=== PATIENT | female | born 1970 | race Caucasian/White ===

== ENCOUNTER 2016-10-28 00:07 | Emergency (ER) | payer SELFPAY ==
[~2016-10-28] VITALS: Ht 165.1 cm; Wt 89.0 kg
[2016-10-28 00:13] VITALS: BP 131/79; PULSE 79; RESP 18; TEMP 98; O2SAT 98
[2016-10-28] MEDS ORDERED: BLAC540C PO (00:49)
[2016-10-28] MEDS ORDERED: BACT800T5 PO (01:32)
[2016-10-28] MEDS ORDERED: DOXY100C PO (01:32)
--- NOTE | 2016-10-28 01:34 | PD ---
HPI Chief Complaint: Skin Problem Time Seen by Provider: 01:26 Travel History International Travel<30 days: No Contact w/Intl Traveler<30days: No Traveled to known affect area: No History of Present Illness HPI The patient is a 46-year-old female that complains of painful lumps in her groin for approximately 3 days. She states she does not shave the area but shaved it after the lumps appeared so that she could see what was happening. At work she states he sweats a lot and this would not wear underwear. She denies any history of diabetes. PFSH Past Medical History Shingles: Yes (AGE 20) Tetanus Vaccination: > 5 Years Influenza Vaccination: No ?: Not LMP: "NO PERIOD IN 8 OR 9 MONTHS" : 3 Para: 2 : 1 Tubal Ligation: Yes Social History Alcohol Use: No Tobacco Use: Yes (/ PPD) Substance Use: Yes (MARIJUANA "FROM TIME TO TIME") Allergies-Medications (Allergen,Severity, Reaction): Coded Allergies: No Known Allergies (Unverified , 10/28/16) Reported Meds & Prescriptions Reported Meds & Active Scripts Active Reported Black Cohosh (Black Cohosh Extract) 40 Mg Cap 200 Mg PO DAILY Review of Systems Except as stated in HPI: all other systems reviewed are Neg Physical Exam Narrative GENERAL: Well-nourished, well-developed patient in slight apparent distress with her skin rash on her left groin. Her vital signs are normal. SKIN: Focused skin assessment warm/dry. There are several areas that appear to be folliculitis on the groin the P1 infected area is about 3 x 2 cm, nonfluctuant and appears to be associated with an infected hair follicle. HEAD: Normocephalic. EYES: No scleral icterus. No injection or drainage. NECK: Supple, trachea midline. No JVD or lymphadenopathy. CARDIOVASCULAR: Regular rate and rhythm without murmurs, gallops, or rubs. RESPIRATORY: Breath sounds equal bilaterally. No accessory muscle use. GASTROINTESTINAL: Abdomen soft, non-tender, nondistended. MUSCULOSKELETAL: No cyanosis, or edema. BACK: Nontender without obvious deformity. No CVA tenderness. Data Data Last Documented VS Vital Signs Date Time Temp Pulse Resp B/P Pulse Ox O2 Delivery O2 Flow Rate FiO2 10/28/16 00:13 98.0 79 18 131/79 98 [facility] Medical Decision Making Medical Screen Exam Complete: Yes Emergency Medical Condition: Yes Medical Record Reviewed: Yes Differential Diagnosis Folliculitis, cellulitis, pyoderma gangrenosumunlikely, abscess, necrotizing fasciitishighly unlikely Narrative Course The patient does not appear to be showing any abscess formation at this time. She has a cellulitis which is probably associated with a hair follicle. Plan: The patient will be given doxycycline and Septra DS. She should use warm compresses. She should follow-up with a data conversion developer. Diagnosis Primary Impression: Cellulitis of groin, left Additional Impression: Folliculitis Additional Instructions: As we discussed, this may convert into a walled off abscess which can drain. Return to the emergency department this is happened. This may occur in the next 3-4 days. Both antibiotics are taken one tablet twice daily for 10 days. Follow-up with a data conversion developer. Med/Other Pt SpecificInfo: Prescription(s) given Scripts Doxycycline Hyclate 100 Mg [id number] Mg PO BID #20 CAP Ref 0 Prov:Mark Moya MD 10/28/16 Sulfamethoxazole-Trimethoprim (Bactrim DS)800-160 Mg Tab1 Tab PO BID #20 TAB Ref 0 Prov:Mark Moya MD 10/28/16 Disposition: 01 DISCHARGE HOME Condition: Stable Mark Moya MD Oct 28, 2016 01:34
[2016-10-28] MEDS ORDERED: SULFAMETHOXAZOLE-TRIMETHOPRIM DS 800-160 MG TAB PO ONE (01:45)
[2016-10-28] MEDS ORDERED: DOXYCYCLINE HYCLATE 100 MG TAB PO ONE (01:45)
[2016-10-28 01:54] VITALS: BP 128/72
== END 2016-10-28 02:13 | disposition home or self-care (01) ==
LOC: PHED 00:07
DX: L03.314 Cellulitis of groin (principal); L73.9 Follicular disorder, unspecified
CPT/HCPCS: 99284

== ENCOUNTER 2017-01-02 11:53 | Emergency (ER) | payer SELFPAY ==
[~2017-01-02] VITALS: Ht 165.1 cm; Wt 97.8 kg
[~2017-01-02 11:53] MED LIST: BACT800T5 PO; BLAC540C PO; DOXY100C PO
[2017-01-02 12:00] VITALS: BP 136/74; PULSE 73; RESP 16; TEMP 98.2; O2SAT 100
[2017-01-02 12:30] VITALS: O2SAT 100
[2017-01-02 12:30] LABS: AUTOMATED NEUTROPHIL # 3.3 TH/MM3 (1.8-7.7); BASOPHIL % 0.3 % (0.0-2.0); EOSINOPHIL # 0.1 TH/MM3 (0-0.4); EOSINOPHIL % 1.5 % (0.0-4.0); HEMATOCRIT 36.5 % (35.0-46.0); HEMO FLAGS DIFF FINAL; LYMPH % 31.2 % (9.0-44.0); LYMPHOCYTE # 1.7 TH/MM3 (1.0-4.8); MEAN CELL VOLUME 88.1 FL (80.0-100.0); MEAN CORPUSCULAR HEMOGLOBIN 30.1 PG (27.0-34.0); MEAN CORPUSCULAR HGB CONC 34.2 % (32.0-36.0); MONO % 5.1 % (0.0-8.0); NEUT % 61.9 % (16.0-70.0); PLATELET COUNT 225 TH/MM3 (150-450); RED BLOOD COUNT 4.15 MIL/MM3 (4.00-5.30); RED CELL DISTRIBUTION WIDTH 12.4 % (11.6-17.2); WHITE BLOOD COUNT 5.4 TH/MM3 (4.0-11.0)
[2017-01-02] MEDS ORDERED: MORPHINE SULFATE 4 MG/ML INJ IV PUSH ONE (12:30)
[2017-01-02] MEDS ORDERED: SODIUM CHLORIDE 0.9% FLUSH 10 ML FLUSH IVF PRN (12:30)
[2017-01-02] MEDS ORDERED: ASPIRIN 325 MG TAB PO ONE (12:30)
[2017-01-02 12:39] LABS: CHLORIDE 106 MEQ/L (98-107); SODIUM (NA) 138 MEQ/L (136-145)
[2017-01-02 12:43] LABS: ANION GAP 8 MEQ/L (5-15); BICARBONATE 24.1 MEQ/L (21.0-32.0); BLOOD UREA NITROGEN 15 MG/DL (7-18); MAGNESIUM 2.3 MG/DL (1.5-2.5)
[2017-01-02 12:46] LABS: GLOMERULAR FILTRATION RATE 64 ML/MIN (>89)
[2017-01-02 12:53] VITALS: BP_SYST 139; BP_SYST 143; BP_DIAS 76; BP_DIAS 81; PULSE 60; O2SAT 100
[2017-01-02 12:54] VITALS: BP 143/81; PULSE 60; O2SAT 100
--- NOTE | 2017-01-02 12:56 | RADRPT ---
EXAM DATE/TIME: 01/02/2017 12:30 [facility] COMPARISON: No previous studies available for comparison. INDICATIONS : Chest pain MEDICAL HISTORY : None. SURGICAL HISTORY : None. ENCOUNTER: Initial ACUITY: 4 - 6 days PAIN SCORE: 6/10 LOCATION: middle Chest FINDINGS: A single view of the chest demonstrates the lungs to be symmetrically aerated without evidence of mas s, infiltrate or effusion. The cardiomediastinal contours are unremarkable. Osseous structures are intact. CONCLUSION: No acute cardiopulmonary process. Josue August MD on January 02, 2017 at 12:54 Board Certified Radiologist. This report was verified electronically.
[2017-01-02] MEDS ORDERED: NITROGLYCERIN 0.4 MG SL 25 TABS/BTL SL ONE (13:00)
--- NOTE | 2017-01-02 13:01 | PD ---
HPI Chief Complaint: Pain: Acute or Chronic Time Seen by Provider: 12:15 Travel History International Travel<30 days: No Contact w/Intl Traveler<30days: No Traveled to known affect area: No History of Present Illness HPI The patient's 46 years old. She complains of a generalized sensation of swelling involving the hands leg subjective for about 5 days. She reports pain in the mid to lower thoracic back which radiates anteriorly. There is no pleuritic chest pain cough or fever. Patient denies history of blood clots, recent prolonged travel, hormone use. Pain severity is about 4/10. No similar prior episodes reported. Patient has a history of coronary artery disease in her family. She has no history of hypertension hyperlipidemia or diabetes. She smokes 10-15 cigarettes daily. PFSH Past Medical History Diminished Hearing: No Shingles: Yes (AGE 20) Tetanus Vaccination: Unknown Influenza Vaccination: No ?: Not : 3 Para: 2 : 1 Tubal Ligation: Yes Social History Alcohol Use: No Tobacco Use: Yes (/ PPD) Substance Use: Yes (MARIJUANA "FROM TIME TO TIME") Allergies-Medications (Allergen,Severity, Reaction): Coded Allergies: No Known Allergies (Unverified , 10/28/16) Reported Meds & Prescriptions Reported Meds & Active Scripts Active Doxycycline Hyclate 100 Mg Cap 100 Mg PO BID Bactrim DS (Sulfamethoxazole-Trimethoprim) 800-160 Mg Tab 1 Tab PO BID Reported Black Cohosh (Black Cohosh Extract) 40 Mg Cap 200 Mg PO DAILY Review of Systems Except as stated in HPI: all other systems reviewed are Neg General / Constitutional: No: Fever Cardiovascular: Positive: Chest Pain or Discomfort Physical Exam Narrative GENERAL: 46-year-old female well-nourished well-developed SKIN: Warm and dry. HEAD: Atraumatic. Normocephalic. EYES: Pupils equal and round. No scleral icterus. No injection or drainage. ENT: No nasal bleeding or discharge. Mucous membranes pink and moist. NECK: Trachea midline. No JVD. CARDIOVASCULAR: Regular rate and rhythm. RESPIRATORY: No accessory muscle use. Clear to auscultation. Breath sounds equal bilaterally. GASTROINTESTINAL: Abdomen soft, non-tender, nondistended. Hepatic and splenic margins not palpable. MUSCULOSKELETAL: Extremities without clubbing, cyanosis, or edema. No obvious deformities. No focal spinal tenderness. Minimal tenderness palpation of the para-thoracic musculature. NEUROLOGICAL: Awake and alert. No obvious cranial nerve deficits. Motor grossly within normal limits. Five out of 5 muscle strength in the arms and legs. Normal speech. PSYCHIATRIC: Appropriate mood and affect; insight and judgment normal. Data Data Last Documented VS Vital Signs Date Time Temp Pulse Resp B/P (MAP) Pulse Ox O2 Delivery O2 Flow Rate FiO2 01/02/17 12:54 60 143/81 (101) 100 01/02/17 12:00 98.2 16 Vital signs reviewed Orders Orders Electrocardiogram (01/02/17 12:20) Basic Metabolic Panel (Bmp) (01/02/17 12:20) Complete Blood Count With Diff (01/02/17 12:20) D-Dimer (01/02/17 12:20) Magnesium (Mg) (01/02/17 12:20) Troponin I (01/02/17 12:20) Chest, Single Ap (01/02/17 12:20) Ecg Monitoring (01/02/17 12:20) Bilateral Bp Monitoring (01/02/17 12:20) Iv Access Insert/Monitor (01/02/17 12:20) Oximetry (01/02/17 12:20) Oxygen Administration (01/02/17 12:20) Aspirin (Aspirin) (01/02/17 12:30) Morphine Inj (Morphine Inj) (01/02/17 12:30) Sodium Chloride 0.9% Flush (Ns Flush) (01/02/17 12:30) Nitroglycerin Sl (Nitrostat Sl) (01/02/17 13:00) Meclizine (Antivert) (01/02/17 13:15) Lorazepam Inj (Ativan Inj) (01/02/17 13:15) Labs Laboratory Tests Test 01/02/17 12:23 White Blood Count 5.4 TH/MM3 Red Blood Count 4.15 MIL/MM3 Hemoglobin 12.5 GM/DL Hematocrit 36.5 % Mean Corpuscular Volume 88.1 FL Mean Corpuscular Hemoglobin 30.1 PG Mean Corpuscular Hemoglobin Concent 34.2 % Red Cell Distribution Width 12.4 % Platelet Count 225 TH/MM3 Mean Platelet Volume 8.1 FL Neutrophils (%) (Auto) 61.9 % Lymphocytes (%) (Auto) 31.2 % Monocytes (%) (Auto) 5.1 % Eosinophils (%) (Auto) 1.5 % Basophils (%) (Auto) 0.3 % Neutrophils # (Auto) 3.3 TH/MM3 Lymphocytes # (Auto) 1.7 TH/MM3 Monocytes # (Auto) 0.3 TH/MM3 Eosinophils # (Auto) 0.1 TH/MM3 Basophils # (Auto) 0.0 TH/MM3 CBC Comment DIFF FINAL Differential Comment D-Dimer Quantitative (PE/DVT) LESS THAN 0.19 MG/L FEU Blood Urea Nitrogen 15 MG/DL Creatinine 0.95 MG/DL Random Glucose 101 MG/DL Calcium Level 8.7 MG/DL Magnesium Level 2.3 MG/DL Sodium Level 138 MEQ/L Potassium Level 4.0 MEQ/L Chloride Level 106 MEQ/L Carbon Dioxide Level 24.1 MEQ/L Anion Gap 8 MEQ/L Estimat Glomerular Filtration Rate 64 ML/MIN Troponin I LESS THAN 0.02 NG/ML MDM Medical Decision Making Medical Screen Exam Complete: Yes Emergency Medical Condition: Yes Differential Diagnosis NSTEMI, unstable angina, coronary vasospasm, PE, PTX, aortic dissection, pericarditis, myocarditis, endocarditis, PNA, esophageal disease, aneurysm, musculoskeletal etiologies, anxiety, cocaine/sympathomimetic abuse, peripheral vertigo, central vertigo Narrative Course CBC & BMP Diagram 01/02/17 12:23 Calcium Level 8.7, Magnesium Level 2.3 Troponin less than 0.02 EKG shows a sinus rhythm at a rate of 55 with normal axis and intervals no ischemic injury pattern Chest x-ray shows no acute cardiopulmonary disease The patient is resting comfortably and feels better, is alert and in no distress. The patients results and examination findings were discussed. The repeat examination is unremarkable and benign. The history, exam, diagnostic testing, and current condition do not suggest any significant pathology to warrant further testing, continued ED treatment, admission, or surgical evaluation at this point. The vital signs have been stable. The patient does not have uncontrollable pain, intractable vomiting, or other significant symptoms. The patient's condition is stable and appropriate for discharge. The patient will pursue further outpatient evaluation with a primary care physician or other designated or consulting physician as indicated in the discharge instructions. The patient expressed understanding and was agreeable with this plan. Diagnosis Primary Impression: Back pain Qualified Codes: M54.6 - Pain in thoracic spine Additional Impression: Dizziness Referrals: Primary Care Physician call for appointment Additional Instructions: You have a choice when it comes to health care, and we are glad that you chose [facility]. Hopefully, we have met your expectations on today's visit. You are welcome to return to [facility] at any time, as we are committed to meeting the health care needs of our community. Med/Other Pt SpecificInfo: Prescription(s) given Scripts Meclizine (Meclizine) 25 Mg Tab 25 MG PO TID Y for VERTIGO, #20 TAB 0 Refills Prov: Ranjeet Urban MD 01/02/17 Disposition: 01 DISCHARGE HOME Condition: Stable Ranjeet Urban MD Jan 02, 2017 13:01
[2017-01-02] MEDS ORDERED: MECL-62 PO (13:13)
[2017-01-02] MEDS ORDERED: MECLIZINE HCL 25 MG TAB PO ONE (13:15)
[2017-01-02] MEDS ORDERED: LORazepam 2 MG/ML VIAL IV PUSH ONE (13:15)
--- NOTE | 2017-01-03 08:41 | EKG ---
Date Performed: 01/02/2017 Time Performed: 12:15:36 PTAGE: 46 years EKG: SINUS BRADYCARDIA WITH SINUS ARRHYTHMIA BORDERLINE ECG NO PREVIOUS TRACING DOCTOR: Allan Ratliff Interpretating Date/Time 01/03/2017 08:38:53
== END 2017-01-02 13:31 | disposition home or self-care (01) ==
LOC: PHED 11:53
DX: M54.6 Pain in thoracic spine (principal); R42 Dizziness and giddiness
CPT/HCPCS: 71010; 80048; 83735; 84484; 85025; 85379; 93005; 99285